=== PATIENT | female | born 1995 | race African-American/Black ===

== ENCOUNTER 2020-02-10 13:16 | Emergency (ER) | payer OTHER, SELFPAY ==
[2020-02-10 13:29] VITALS: BP 148/78; PULSE 83; RESP 16; TEMP 37.1; O2SAT 99
--- NOTE | 2020-02-10 13:37 | ED.LOWEXIN ---
HPI - Extremity Injury (Lower) General Chief Complaint: Extremity Injury, Lower Stated Complaint: Left knee pain Time Seen by Provider: 02/10/20 13:31 Source: patient and RN notes reviewed Mode of arrival: ambulatory Limitations: no limitations History of Present Illness HPI Narrative: Patient presents today complaining of left knee pain. States that she felt her left kneecap pop out of place yesterday for a few seconds before it popped back in by itself when she straighten her leg out. She presents today because she continues to have some pain. States the pain has been improving. She currently rates her pain 7/10, which increases with movement or standing. She has tried no [id number]-opn-jernlau interventions at home prior to arrival. MD complaint: knee injury Related Data Home Medications Medication Instructions Recorded Confirmed No Home Medications 02/10/20 02/10/20 Allergies Allergy/AdvReac Type Severity Reaction Status Date / Time No Known Allergies Allergy Verified 02/10/20 13:30 Review of Systems Review of Systems: Narrative: CONSTITUTIONAL: Denies body aches, fever, chills, or sweats. EYES: Denies visual changes, redness, or discharge. ENT: Denies rhinorrhea, congestion, sore throat, or otalgia. CARDIOVASCULAR: Denies chest pain, palpitations, or edema. RESPIRATORY: Denies cough or dyspnea. GASTROINTESTINAL: Denies abdominal pain, nausea, vomiting, or diarrhea. GENITOURINARY: Denies dysuria or hematuria. SKIN: Denies rash, itching, or wounds. MUSCULOSKELETAL: Denies back pain, or myalgia. + Left knee pain NEUROLOGIC: Denies headache, numbness, tingling, or weakness. PSYCH: Denies depression or anxiety. PMFSH Social History Social History Gender identity (if verbalized by the patient): Female Comments At time of signature, I have reviewed and agree with nursing past medical, surgical, social and family history unless otherwise noted. Please see nursing chart for further information. There is no relevant family history pertinent to the presenting complaint Exam Narrative: Exam Narrative: GENERAL: Well-appearing, well-nourished, and in no acute distress. HEAD: Normocephalic, atraumatic. EYES: EOMI. No redness or drainage. Conjunctivae normal. ENT: Mucous membranes pink and moist. NECK: Normal AROM. CHEST: No respiratory distress. EXTREMITIES: Tenderness to the medial joint line. Difficult to determine edema of the knee due to patient's body habitus. No tenderness with palpation of the patella, but it does seem in correct anatomical position. Distal sensation intact. Capillary refill normal. Pedal pulse normal. Pain with AROM of the knee. SKIN: Warm, dry, no rash. Capillary refill normal. Normal skin turgor. NEURO: No focal deficits. Alert and oriented x3. Gait steady. PSYCH: Normal affect. No signs of depression or anxiety. Course Vital Signs Vital signs: Vital Signs Temperature 98.7 F 02/10/20 13:29 Pulse Rate 83 02/10/20 13:29 Respiratory Rate 16 02/10/20 13:29 Blood Pressure 148/78 H 02/10/20 13:29 Pulse Oximetry 99 02/10/20 13:29 Temperature 98.7 F 02/10/20 13:29 Pulse Rate 83 02/10/20 13:29 Respiratory Rate 16 02/10/20 13:29 Blood Pressure 148/78 H 02/10/20 13:29 Pulse Oximetry 99 02/10/20 13:29 Reviewed. Pt has been instructed to follow up with her PCP regarding her elevated blood pressure today. MDM - Extremity Injury (Lower) Differential Diagnosis Differential diagnosis: Likely other (Knee sprain, effusion, ligament injury, meniscus injury, patellar subluxation) Critical Care Time Critical Care Time Critical Care Time: No Discharge Plan Discharge Clinical Impression: Acute pain of left knee Patient Disposition: Home, Self-Care Condition: Stable Instructions: Knee Pain (ED) Additional Instructions: Apply ice to the knee. Take an anti-inflammatory such as Aleve or ibuprofen. Rest the knee. Follow-up with your doc
== END 2020-02-10 13:42 | disposition home or self-care (01) ==
PROVIDERS: Emergency Provider Nurse Practitioner
DX: M25.562 Pain in left knee (principal)
CPT/HCPCS: 99202; G0463

== ENCOUNTER 2021-04-15 13:10 | Emergency (ER) | payer OTHER, SELFPAY ==
[2021-04-15 13:18] VITALS: BP 141/89; PULSE 85; RESP 16; TEMP 37.1; O2SAT 99
--- NOTE | 2021-04-15 14:49 | ED.GENADULT ---
HPI - General Adult General Chief complaint: Unspecified Stated complaint: rt breast pain Time Seen by Provider: 04/15/21 14:44 Source: patient and RN notes reviewed Mode of arrival: ambulatory Limitations: no limitations History of Present Illness HPI narrative: Patient presents today complaining of right breast pain x11 days around the areola. She denies any warmth, redness, swelling, discharge, injury. Denies similar pain in the past. She currently rates her pain 04/27 and has tried no medication for symptoms prior to arrival. She does not have an EDUCATIONAL TECHNOLOGY COORDINATOR and does not get yearly checks. MD complaint: Right breast pain Related Data Home Medications Medication Instructions Recorded Confirmed No Home Medications 02/10/20 04/15/21 Allergies Allergy/AdvReac Type Severity Reaction Status Date / Time No Known Allergies Allergy Verified 04/15/21 14:28 Review of Systems Review of Systems: CONSTITUTIONAL: Denies body aches, fever, chills, or sweats. EYES: Denies visual changes, redness, or discharge. ENT: Denies rhinorrhea, congestion, sore throat, or otalgia. CARDIOVASCULAR: Denies chest pain, palpitations, or edema. RESPIRATORY: Denies cough or dyspnea. GASTROINTESTINAL: Denies abdominal pain, nausea, vomiting, or diarrhea. GENITOURINARY: Denies dysuria or hematuria. SKIN: Denies rash, itching, or wounds.+ Right breast pain MUSCULOSKELETAL: Denies back pain, joint pain, or myalgia. NEUROLOGIC: Denies headache, numbness, tingling, or weakness. PSYCH: Denies depression or anxiety. PMFSH Social History Social History Gender identity (if verbalized by the patient): Female Comments At time of signature, I have reviewed and agree with nursing past medical, surgical, social and family history unless otherwise noted. Please see nursing chart for further information. There is no relevant family history pertinent to the presenting complaint Exam Narrative: GENERAL: Well-appearing, well-nourished, and in no acute distress. HEAD: Normocephalic, atraumatic. EYES: EOMI. No redness or drainage. Conjunctivae normal. ENT: Mucous membranes pink and moist. NECK: Normal AROM. CHEST: No respiratory distress. Bilateral breasts appear normal. Breast: Areola appears normal. No redness, induration, edema noted. No discharge from the nipple noted. No tenderness about the entire right breast. EXTREMITIES: Normal range of motion. No edema. SKIN: Warm, dry, no rash. Capillary refill normal. Normal skin turgor. NEURO: No focal deficits. Alert and oriented x3. Gait steady. PSYCH: Normal affect. No signs of depression or anxiety. Course Course Emergency Course: Discussed following up with an EDUCATIONAL TECHNOLOGY COORDINATOR. Vital Signs Vital signs: Vital Signs Temperature 98.7 F 04/15/21 13:18 Pulse Rate 85 04/15/21 13:18 Respiratory Rate 16 04/15/21 13:18 Blood Pressure 141/89 H 04/15/21 13:18 Pulse Oximetry 99 04/15/21 13:18 Temperature 98.7 F 04/15/21 13:18 Pulse Rate 85 04/15/21 13:18 Respiratory Rate 16 04/15/21 13:18 Blood Pressure 141/89 H 04/15/21 13:18 Pulse Oximetry 99 04/15/21 13:18 Reviewed. Pt has been instructed to follow up with her PCP regarding her elevated blood pressure today. Medical Decision Making Differential Diagnosis Differential Diagnosis: Breast pain, abscess, mastitis Vital Signs Vital Signs: Vital Signs Temperature 98.7 F 04/15/21 13:18 Pulse Rate 85 04/15/21 13:18 Respiratory Rate 16 04/15/21 13:18 Blood Pressure 141/89 H 04/15/21 13:18 Pulse Oximetry 99 04/15/21 13:18 Temperature 98.7 F 04/15/21 13:18 Pulse Rate 85 04/15/21 13:18 Respiratory Rate 16 04/15/21 13:18 Blood Pressure 141/89 H 04/15/21 13:18 Pulse Oximetry 99 04/15/21 13:18 Critical Care Time Critical Care Time Critical Care Time: No Discharge Plan Discharge Clinical Impression: Pain of right breast Pa
== END 2021-04-15 15:03 | disposition home or self-care (01) ==
PROVIDERS: Emergency Provider Nurse Practitioner
DX: N64.4 Mastodynia (principal)
CPT/HCPCS: 99212; G0463

== ENCOUNTER 2022-08-04 08:41 | Emergency (ER) | payer OTHER, SELFPAY ==
[2022-08-04 08:50] VITALS: BP 137/85; PULSE 78; RESP 20; TEMP 36.9; O2SAT 100
--- NOTE | 2022-08-04 08:53 | ED.GENADULT ---
HPI - General Adult General Chief complaint: Unspecified Stated complaint: swollen throat Time Seen by Provider: 08/04/22 08:55 History of Present Illness HPI narrative: 26 y/o female presented for c/o 'throat feels swollen' since yesterday. Endorses pain with swallowing. Denies difficulty maintaining secretions. Denies associated sinus congestion or post nasal drainage. Symptoms started yesterday after eating hot wings. Denies sob, wheezing, n/v/d/f/c. Has not taken anything for symptoms. Denies sick contacts. Related Data Home Medications Medication Instructions Recorded Confirmed norethindrone 1 mg-ethinyl 1 tablet PO DAILY 08/04/22 08/04/22 estradiol 20 mcg (21)-iron 75 mg (7) tablet ([place]is[place] Fe 05/07 (28)) Allergies Allergy/AdvReac Type Severity Reaction Status Date / Time No Known Allergies Allergy Verified 08/04/22 08:44 Review of Systems Review of Systems: CONSTITUTIONAL: Denies body aches, fever, chills, or sweats. EYES: Denies visual changes, redness, or discharge. ENT: Denies rhinorrhea, congestion, or otalgia. CARDIOVASCULAR: Denies chest pain, palpitations, or edema. RESPIRATORY: Denies dyspnea. GASTROINTESTINAL: Denies abdominal pain, nausea, vomiting, or diarrhea. SKIN: Denies rash, itching, or wounds. MUSCULOSKELETAL: Denies back pain, joint pain, or myalgia. NEUROLOGIC: Denies headache [facility] Social History Social History Gender identity (if verbalized by the patient): Female Exam Narrative: GENERAL: well-appearing, no acute distress. EYES: conjunctivae clear ENT: Mucous membranes moist. TMs pearly rodríguez with normal light reflex bilaterally; no tragal tenderness. Oropharynx erythematous Tonsils enlarged 1+ with mild exudate. No drooling, no hoarseness, no trismus, uvula midline. No tripod positioning, hot potato voice, or soft palate swelling. NECK: Supple. No lymphadenopathy CHEST: Clear to auscultation, breath sounds equal. No respiratory distress, speaks in full sentences. HEART: Regular rate and rhythm. No murmur heard. SKIN: Warm, dry, no rash. NEURO: Alert and oriented x3. Course Course Emergency Course: Patient is aware of diagnosis, understands and agrees to treatment plan. Anticipatory guidance given. Patient agrees to follow-up as directed and is aware of reasons to seek care at the emergency department. Portions of this record may have been created with voice recognition software Level of Care: Express Care Visit Medical Decision Making MDM Narrative Medical decision making narrative: Results of strep test reviewed with patient. Discussed physical exam findings and will start abx. Advised supportive measures and signs/symptoms to go to the ER. Pt is appropriate for outpt treatment and f/u. Differential Diagnosis Differential Diagnosis: Influenza, covid, sinusitis, OM, strep pharyngitis, URI Discharge Plan Discharge Clinical Impression: Pharyngitis Qualifiers: Pharyngitis/tonsillitis etiology: unspecified etiology Qualified Code(s): J02.9 - Acute pharyngitis, unspecified Patient Disposition: Home, Self-Care Condition: Stable Additional Instructions: Rapid strep swab was negative today You will be notified in a few days if the culture comes back positive for strep if symptoms are due to a viral illness, it is not treated with antibiotics. Viral symptoms can be present for up to 10-14 days. Recommend Flonase spray and Zyrtec for sinus congestion/runny nose Tylenol every 8 hours as needed for pain/fever Soft foods, cool liquids, warm tea. Gargle with warm saltwater twice a day. Chloraseptic spray and throat lozenges. Rest and stay hydrated. --Follow up with your PCP --Go to the ER immediately if you cannot swallow your saliva, trouble breathing/wheezing, throat swelling, pain is persistent and severe Prescriptions: New amoxicillin 500 mg tablet 1,000 mg PO DAILY 10 Days Qty:
== END 2022-08-04 09:10 | disposition home or self-care (01) ==
PROVIDERS: Emergency Provider Nurse Practitioner Family
DX: J02.9 Acute pharyngitis, unspecified (principal)
CPT/HCPCS: 87081; 87880; 99213; G0463

== ENCOUNTER 2023-01-11 10:04 | Emergency (ER) | payer OTHER, SELFPAY ==
[2023-01-11 10:13] VITALS: BP 149/97; PULSE 73; RESP 18; TEMP 37.1; O2SAT 100
--- NOTE | 2023-01-11 10:14 | ED.URI ---
HPI - URI/Sore Throat General Chief Complaint: Upper Respiratory Infection Stated Complaint: Swollen Neck Time Seen by Provider: 01/11/23 10:07 Source: patient Mode of arrival: ambulatory Limitations: no limitations History of Present Illness HPI Narrative: Janusz is a 27-year-old female patient presenting to the clinic today with complaints of a sore throat times 2-3 days. She reports that her throat feels itchy and she has had some nasal drainage. Thinks that this may be allergy related. Feels as though her tonsils are swollen. She denies any fever, chills, body aches. No known exposure to anyone with COVID, flu, or strep. MD elicited complaint: sore throat and nasal congestion Related Data Home Medications Medication Instructions Recorded Confirmed norethindrone 1 mg-ethinyl 1 tablet PO DAILY 08/04/22 01/11/23 estradiol 20 mcg (21)-iron 75 mg (7) tablet ([place]is[place] Fe / (28)) Allergies Allergy/AdvReac Type Severity Reaction Status Date / Time No Known Allergies Allergy Verified 01/11/23 10:12 Review of Systems Review of Systems: Pertinent positives per HPI. Patient denies any fever, chills, rash, headache, visual changes, dizziness, cough, shortness of breath, chest pain, palpitations, nausea, vomiting, diarrhea, constipation, abdominal pain, or any urinary issues. PMFSH Social History Social History Gender identity (if verbalized by the patient): Female Comments At the time of my signature, I reviewed and agree with the nursing past medical, surgical, social, and family history. There is no relevant family history pertinent to the patient complaint. Exam Narrative: General: Well-developed, well nourished, in no apparent distress Head: Normocephalic, atraumatic Eyes: Pupils equally round and reactive to light bilaterally, EOM intact, sclera and conjunctive clear, no discharge, lids normal Ears: TMs intact and clear, ear canals clear, no drainage, grossly hearing normal. Nose: Nares patent, no discharge, no inflammation, no sinus tenderness. Mouth: Oral pharynx mildly red with mild tonsillar enlargement with blister lesions to the soft palate without masses, good dentition, MMM. Neck: Supple, trachea midline, mild enlargement of anterior cervical nodes, no thyroid masses or goiter palpable. Cardio: Regular rate and rhythm, s1 and s2 normal, no murmur appreciated. Resp: Clear to auscultation bilaterally, no rhonchi, rales, wheezing or rubs Course Course Emergency Course: Portions of this record may have been created with voice recognition software. Level of Care: Express Care Visit Vital Signs Vital signs: Vital signs reviewed MDM - URI/Sore Throat MDM Narrative Medical decision making narrative: At the time of visit patient is resting on the exam table. Strep screen was obtained was negative. We will send strep for culture. I suspect patient has viral pharyngitis. Supportive measures were discussed with the patient and she voiced understanding of the discharge instructions and agrees to treatment plan. Differential Diagnosis Differential diagnosis: Likely upper respiratory infection, otitis media, sinusitis, viral infection, bronchitis, influenza, pharyngitis and other (Covid) Discharge Plan Discharge Clinical Impression: Pharyngitis Qualifiers: Pharyngitis/tonsillitis etiology: unspecified etiology Qualified Code(s): J02.9 - Acute pharyngitis, unspecified Patient Disposition: Home, Self-Care Condition: Stable Instructions: Antibiotic Form, Pharyngitis (ED) Additional Instructions: Strep screen was negative in the clinic today. We will send for culture if this comes back exam positive we will contact you and place you on antibiotics at that time Increase fluids and stay well hydrated Tylenol/motrin for pain/fever Flonase and OTC antihistamines as directed Vicks vapor rub to open sinuses
== END 2023-01-11 10:37 | disposition home or self-care (01) ==
PROVIDERS: Emergency Provider Nurse Practitioner Family
DX: J02.9 Acute pharyngitis, unspecified (principal)
CPT/HCPCS: 87081; 87880; 99213; G0463

== ENCOUNTER 2023-03-29 12:25 | Emergency (ER) | payer OTHER, SELFPAY ==
[2023-03-29 12:26] VITALS: BP 126/65; PULSE 87; RESP 20; TEMP 37.4; O2SAT 98
[2023-03-29 12:32] VITALS: BP 130/86; PULSE 76; RESP 16; TEMP 36.7; O2SAT 100
[2023-03-29 12:38] VITALS: BP 130/86; PULSE 76; RESP 16; TEMP 36.7; O2SAT 100
--- NOTE | 2023-03-29 13:19 | ED.GENADULT ---
HPI - General Adult General Chief complaint: Urogenital-Female Stated complaint: Vaginal Cramping Time Seen by Provider: 03/29/23 13:19 Source: patient, RN notes reviewed and old records reviewed Mode of arrival: ambulatory Limitations: no limitations History of Present Illness HPI narrative: 27-year-old female presents to the [facility] with complaints of left lower quadrant cleaning. Patient reports she had 2 periods in January. Non in February. Comes in today with 4 days of intermittent left lower quadrant cramping. Denies any significant pain. Denies any nausea or vomiting. Denies any urinary symptoms. No CVA tenderness. No treatment prior to arrival Related Data Home Medications Medication Instructions Recorded Confirmed norethindrone 1 mg-ethinyl 1 tablet PO DAILY 08/04/22 03/29/23 estradiol 20 mcg (21)-iron 75 mg (7) tablet (Blis[place] Fe 05/07 (28)) Allergies Allergy/AdvReac Type Severity Reaction Status Date / Time No Known Allergies Allergy Verified 03/29/23 12:37 Review of Systems Review of Systems: All systems reviewed & are unremarkable except as noted in HPI and below Constitutional: Constitutional: Reports no additional constitutional complaints Eyes: Eyes: Reports no additional eye complaints ENT: Reports system reviewed and no additional complaints, except as documented Cardiovascular: Cardiovascular: Reports no additional cardiovascular complaints, Denies chest pain and Denies dyspnea Respiratory: Respiratory: Reports no additional respiratory complaints, Denies chest congestion, Denies cough and Denies dyspnea Gastrointestinal: Gastrointestinal: Reports no additional gastrointestinal complaints, Denies abdominal pain, Denies nausea and Denies vomiting Genitourinary: Genitourinary: Reports as per HPI Musculoskeletal: Musculoskeletal: Reports no additional musculoskeletal complaints Integumentary/Breasts: Skin/Breast: Reports system reviewed and no additional complaints, except as docu Neurologic: Reports system reviewed and no additional complaints, except as documented Psychiatric: Psychiatric: Reports no additional psychiatric complaints Allergic/Immunologic: Allergic/Immunologic: Reports no additional allergic/immunologic complaints PMFSH Social History Social History Gender identity (if verbalized by the patient): Female Comments At the time of my signature, I reviewed and agree with the nursing past medical, surgical, social, and family history. There is no relevant family history pertinent to the patient complaint. Exam Const: General: cooperative, healthy appearing, comfortable, no acute distress, well developed, alert and well nourished Nutritional Appearance: well nourished and obese Orientation/consciousness: patient oriented x3 Limitations: no limitations HENMT: Head: normal to inspection Ears: hearing grossly normal bilaterally and external ears normal Face/Nose/Sinus: Normal external nose present, Normal nares present, Normal nasal mucous membranes and turbinates present, normal facial exam and face symmetric Face and sinus: normal facial exam and face symmetric Eyes: General: appearance normal, both eyes and all related structures Alignment and Position: alignment normal Periorbital: periorbital findings normal Pupils: Equal, round and reactive pupils present EOM: EOMs intact bilaterally Neck: Neck: normal visual inspection, full ROM, no lymphadenopathy and no meningeal signs Chest: Chest palpation & inspection: normal inspection of the chest Resp: Effort & Inspection: normal respiratory effort and able to speak in complete sentences Auscultation: clear to auscultation bilaterally, no crackles, no rales, no rhonchi and no wheezes Cardio: Rate: regular rate Rhythm: regular rhythm GI: GI Palp: No abdominal tenderness, Yes Soft to palpation, No Tenderness to palpation present (GI) and No Guarding due t
== END 2023-03-29 13:29 | disposition home or self-care (01) ==
PROVIDERS: Emergency Provider Nurse Practitioner
DX: R10.32 Left lower quadrant pain (principal); Z32.02 Encounter for pregnancy test, result negative
CPT/HCPCS: 81003; 81025; 99212; G0463